=== PATIENT | male | born 1980 | race Caucasian/White ===

== ENCOUNTER 2020-03-31 14:19 | Emergency (ER) | payer OTHER ==
[~2020-03-31 14:19] MED LIST: Iopamidol 370 76% 100 ML VIAL ONE
[2020-03-31 15:20] LABS: #Basophils 0.1 thou/uL (0.0-0.2); #Eosinphils 0.4 thou/uL (0.0-0.7); #Monocytes 0.6 thou/uL (0.11-0.59); #Neutrophils 5.9 thou/uL (1.40-6.50); %Basophils 0.6 % (0.0-1.0); %Eosinophils 4.1 % (0.0-10.0); %Lymphocytes 22.5 % (21.0-51.0); %Monocytes 6.9 % (0.0-10.0); Hemoglobin 12.2 g/dL (14.0-18.0); Mean Corpuscular HGB CONC 31.5 g/dL (32.0-36.0); Mean Corpuscular Volume 92.3 fL (78.0-98.0); Mean Platelet Volume 6.7 fL (7.4-10.4); Platelet Count 324 thou/uL (130-400); RBC Distribution Width 12.3 % (11.5-14.5)
[2020-03-31 15:32] LABS: CRP (Inflammatory) Less than 0.50 mg/dL (= or < 0.5)
[2020-03-31 15:34] LABS: ALT (SGPT) 17 U/L (8-55); AST (SGOT) 34 U/L (5-34); Albumin 3.8 g/dL (3.5-5.0); Alkaline Phosphatase 89 U/L (40-110); Anion Gap 15 mmol/L (10-20); BUN (Urea Nitrogen) 11 mg/dL (8.9-20.6); Bilirubin, Total 0.3 mg/dL (0.2-1.2); Calc. Creatinine Clearance 0 mL/min (70-130); Calcium 8.7 mg/dL (7.8-10.44); Carbon Dioxide 27 mmol/L (22-29); Chloride 103 mmol/L (98-107); Estimated GFR-MDRD 84; Globulin 3.6 g/dL (2.4-3.5); Glucose 123 mg/dL (70-105); Lipase 23 U/L (8-78); Potassium 3.8 mmol/L (3.5-5.1); Protein, Total 7.4 g/dL (6.0-8.3); Sodium 141 mmol/L (136-145)
[2020-03-31 15:49] LABS: Bilirubin Negative (Negative); Blood, Urine Negative (Negative); Clarity Clear (Clear); Glucose, Urine (Dipstick) Negative (Negative); Leukocyte Negative (Negative); Nitrite Negative (Negative); Protein, Urine (Dipstick) Negative (Neg-Trace); Urobilinogen 0.2 mg/dL (Less than 2)
[2020-03-31 15:57] LABS: Amphetamine Detected (NotDetected); Barbiturates Screen Not Detected (NotDetected); Benzodiazepine Screen Not Detected (NotDetected); Cocaine Metabolite Screen Not Detected (NotDetected); Medtox Control Line Valid? VALID (VALID); Methadone Not Detected (NotDetected); Methamphetamine Detected (NotDetected); Opiate Screen Not Detected (NotDetected); Oxycodone Screen Not Detected (NotDetected); Phencyclidine (PCP) Not Detected (NotDetected); THC/Cannabinoid Screen Not Detected (NotDetected); Tricyclic Screen Not Detected (NotDetected)
--- NOTE | 2020-03-31 16:03 | CT ---
CT ABDOMEN WITH CONTRAST CT PELVIS WITH CONTRAST: DATE: 03/31/2020 HISTORY: 39-year-old male with generalized abdominal pain COMPARISON: None TECHNIQUE: IV injection of iodinated contrast media: administered. Oral contrast media:Not administered FINDINGS: A very short, normal segment of the appendix is identified. The rest of the appendix is difficult to identify because of lack of visceral fat. No small bowel dilation, ascites, pneumoperitoneum, or pleural effusion. Lung bases are clear. Unremarkable urinary bladder, abdominal aorta, kidneys, abdom inal aorta, adrenals, liver, and spleen. No definitive pancreatic pathology identified. There is a small amount of fluid is identified in the dependent portion of the pelvis, between small bowel loops, rectum, and posterior aspect of bladder. It is difficult to determine whether this is a small amount of free fluid or fluid within a small bowel loop. The lack of visceral fat decreases t he sensitivity for the detection of colonic diverticulitis. No overt evidence of colonic diverticulitis. IMPRESSION: No convincing evidence of active disease.
== END 2020-03-31 16:29 ==
LOC: MADERS 14:19
DX: N41.9 Inflammatory disease of prostate, unspecified (principal); R33.9 Retention of urine, unspecified; R10.84 Generalized abdominal pain; Z87.891 Personal history of nicotine dependence
CPT/HCPCS: 51702; 74177; 80053; 80306; 81003; 82150; 83690; 85025; 86140; 87086; 94760; Q9967